=== PATIENT | female | born 1955 | race Caucasian/White ===

== ENCOUNTER → 2016-10-09 | Outpatient (CLI) | payer OTHER ==
[~2016-10-09] MED LIST: BUPR-75 PO; DOXY-17 PO; FLUO10CA66 PO; GABA300C16 PO
--- NOTE | 2016-10-09 14:10 | RADRPT ---
PROCEDURE: Left knee radiographs. CLINICAL INDICATION: Left knee pain. Postop. TECHNIQUE: Three views. Weight bearing. Frontal, lateral, and patellar view. COMPARISON: 02/21/2016. FINDINGS: There is no fracture or dislocation. The soft tissues are normal. 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 There is no lytic or blastic lesion. There is no joint effusion. IMPRESSION: 1. Satisfactory postoperative appearance of the left knee. RPTAT: QQ .Trell Henderson MD, Date Time Electronically viewed and signed by .Trell Henderson MD, on 10/09/2016 14:10 .R/
== END | disposition home or self-care (01) ==
LOC: HKI 09:17
PROVIDERS: ATTEND Orthopaedic Surgery
DX: T84.84XA Pain due to internal orthopedic prosthetic devices, implants and grafts, initial encounter (principal); Z96.652 Presence of left artificial knee joint; Y83.8 Other surgical procedures as the cause of abnormal reaction of the patient, or of later complication, without mention of misadventure at the time of the procedure; M25.562 Pain in left knee
CPT/HCPCS: 73562; Z7500; G0463

== ENCOUNTER → 2016-11-13 | Outpatient (CLI) | payer OTHER ==
--- NOTE | 2016-11-13 14:05 | RADRPT ---
PROCEDURE: Three-phase bone scan study CLINICAL INDICATION: 61 -year-old patient with left knee replacement, complaining of left knee lyn n. TECHNIQUE: Following the intravenous injection of 24.2 mCi of Tc-99m MDP, a three-phase bone scan study of the knees bilaterally was obtained. COMPARISON: No prior bone scan studies. X-ray of the left knee dated October 09, 2016. FINDINGS: Blood flow phase of the study demonstrates symmetrical distribution of activity in the knees bilater ally. Blood pooling images reveal symmetrical distribution of uptake in both knees. Delayed images of both knees demonstrate evidence of a left knee replacement with mildly increased a ctivity surrounding the prosthesis, most prominent in the left patella region, which is likely relat ed to prior surgery. Moderately increased activity is seen in the right knee, which favors degenerative disease. IMPRESSION: 1. Evidence of the left knee replacement with mildly increased activity noted surrounding the prost hesis, likely represents postsurgical changes; prosthesis loosening cannot be entirely ruled out. 2. Likely degenerative changes of the right knee. 3. No other abnormal areas of increased uptake in the obtained limited views of both knees. RPTAT: HH .Missy Morris MD, Date Time Electronically viewed and signed by .Missy Morris MD, on 11/13/2016 14:05 .L/
== END | disposition home or self-care (01) ==
LOC: NUC 08:38
PROVIDERS: ATTEND Orthopaedic Surgery
DX: T84.84XA Pain due to internal orthopedic prosthetic devices, implants and grafts, initial encounter (principal); M25.562 Pain in left knee
CPT/HCPCS: 78315; A9503

== ENCOUNTER 2017-05-27 13:48 | Day surgery (SDC) | END 2017-05-27 21:40 | disposition home or self-care (01) ==

== ENCOUNTER 2018-11-29 17:58 | Emergency (ER) | payer OTHER ==
[~2018-11-29] VITALS: Ht 172.7 cm; Wt 106.8 kg
[~2018-11-29 17:58] MED LIST changes: -DOXY-17 PO; +FLUO10CA26 PO; -FLUO10CA66 PO; +GABA100C14 PO; -GABA300C16 PO
[2018-11-29 18:00] VITALS: Ht 172.7 cm; Wt 106.8 kg
[2018-11-29] MEDS ORDERED: SOD CHLORIDE 0.9% 1,000 ML IV STA (19:40)
--- NOTE | 2018-11-29 19:54 | ERD ---
ER Documentation Chief Complaint Chief Complaint dizziness/near-syncope today while walking w/ CALDERA and nausea. no KO HPI This is a 63-year-old woman brought in by daughter for complaints of dizziness and syncopal episode while walking. She does not recall the entire episode when she woke up she felt normal and was able to ambulate without difficulty. Patient denies head or neck injury, no chest pain or shortness of breath, no dy suria or hematuria, no recent fevers or chills. ROS All systems reviewed and are negative except as per history of present illness. Medications Home Meds Active Scripts Cephalexin* (Keflex*) 500 Mg Capsule, 500 MG PO QID for 5 Days, CAP Prov:PIERRE SCHMITT MD 11/29/18 Reported Medications Gabapentin* (Gabapentin*) 100 Mg Capsule, 500 MG PO QHS, #180 CAP 05/27/17 Bupropion Hcl* (Wellbutrin XL*) 150 Mg Tab.sr.24h, 150 MG PO QAM, TAB.SA 03/12/16 Fluoxetine Hcl* (Prozac*) 10 Mg Capsule, 40 MG PO QAM, CAP 03/14/15 Allergies Allergies: Coded Allergies: adhesive (Unverified Allergy, Unknown, RASH IF LEFT ON TOO LONG, 05/27/17) cortisone (Verified Allergy, Unknown, 05/27/17) methocarbamol (Unverified Allergy, Unknown, DISORIENTED WHEN TAKEN TOGETHER WT CORTISONE, 05/27/17) tramadol (Unverified Allergy, Unknown, rash, 05/27/17) PMhx/Soc Osteoarthritis, orthopedic surgeries History of Surgery: Yes Anesthesia Reaction: No Hx Neurological Disorder: No Hx Respiratory Disorders: No Hx Cardiac Disorders: No Hx Psychiatric Problems: No Hx Miscellaneous Medical Probl: No Hx Alcohol Use: No Hx Substance Use: No Hx Tobacco Use: No FmHx Family History: No diabetes Physical Exam Vitals Vital Signs Date Temp Pulse Resp B/P (MAP) Pulse Ox O2 O2 Flow FiO2 Time Delivery Rate 11/29/18 98.0 76 17 115/59 97 Room Air 21:52 (77) 11/29/18 97.4 93 16 156/84 96 18:00 (108) Physical Exam GENERAL: Well-developed, well-nourished, well-hydrated, in no apparent distress, looks nontoxic in appearance HEENT: Moist mucous membranes, pink conjunctiva, no cervical spine tenderness or step-off deformities, no goiter, no jaundice or icterus, extraocular movements intact without pain. No submandibular induration, and no pharyngeal erythema NEURO: Alert and oriented 3, cranial nerves II through XII intact bilaterally, pupils equal round reactive to light, no focal deficits or facial asymmetry, sensation intact distally Strength 5/5 in upper and lower extremities bilaterally CARDIAC: Regular rate and rhythm, no murmurs rubs or gallops LUNGS: Clear bilaterally no wheezing crackles or stridor ABDOMEN: Soft nontender, no guarding, no rigidity, no rebound, no psoas sign no obturator sign. Normoactive bowel sounds SKIN: Warm and dry to touch, no abrasions, contusions, or hematomas, no lacerations, no ecchymosis, no target lesions, and without ulcers EXTREMITIES: No clubbing cyanosis or edema, calves are bilaterally symmetrical, no Homans sign, no popliteal cord sign. Distal pulses equal and bilateral PSYCH: Normal affect without agitation or irritability Result Diagram: 11/29/18200311/29/182003 Results 24 hrs Laboratory Tests Test 11/29/18 20:04 White Blood Count 9.2 10^3/ul Red Blood Count 5.06 10^6/ul Hemoglobin 13.7 g/dl Hematocrit 42.9 % Mean Corpuscular Volume 84.8 fl Mean Corpuscular Hemoglobin 27.1 pg Mean Corpuscular Hemoglobin Concent 31.9 g/dl Red Cell Distribution Width 13.6 % Platelet Count 319 10^3/UL Mean Platelet Volume 7.9 fl Immature Granulocytes % 0.200 % Neutrophils % 68.1 % Lymphocytes % 21.4 % Monocytes % 6.4 % Eosinophils % 2.9 % Basophils % 1.0 % Nucleated Red Blood Cells % 0.0 /100WBC Immature Granulocytes # 0.020 10^3/ul Neutrophils # 6.3 10^3/ul Lymphocytes # 2.0 10^3/ul Monocytes # 0.6 10^3/ul Eosinophils # 0.3 10^3/ul Basophils # 0.1 10^3/ul Nucleated Red Blood Cells # 0.0 10^3/ul Urine Color STRAW Urine Clarity CLEAR Urine pH 7.0 Urine Specific Roundup 1.006 Urine Ketones NEGATIVE mg/dL Urine Nitrite NEGATIVE mg/dL Urine Bilirubin NEGATIVE mg/dL Urine Urobilinogen NEGATIVE mg/dL Urine Leukocyte Esterase TRACE Ty/ul Urine Microscopic RBC 0 /HPF Urine Microscopic WBC 5 /HPF Urine Hemoglobin NEGATIVE mg/dL Urine Glucose NEGATIVE mg/dL Urine Total Protein NEGATIVE mg/dl Sodium Level 140 mmol/L Potassium Level 4.1 mmol/L Chloride Level 105 mmol/L Carbon Dioxide Level 28 mmol/L Anion Gap 7 Blood Urea Nitrogen 11 mg/dl Creatinine 0.84 mg/dl Est Glomerular Filtrat Rate mL/min > 60 mL/min Glucose Level 122 mg/dl Calcium Level 9.0 mg/dl Total Bilirubin 0.3 mg/dl Direct Bilirubin 0.00 mg/dl Indirect Bilirubin 0.3 mg/dl Aspartate Amino Transf (AST/SGOT) 17 IU/L Alanine Aminotransferase (ALT/SGPT) 16 IU/L Alkaline Phosphatase 92 IU/L Troponin I < 0.012 ng/ml Total Protein 7.4 g/dl Albumin 3.8 g/dl Globulin 3.60 g/dl Albumin/Globulin Ratio 1.05 Lipase 77 U/L Current Medications Medications Dose Sig/Clover Start Time Status Last (Trade) Ordered Route PRN Stop Time Admin Dose Reason Admin Sodium 1,000 ml @ Q1H STAT 11/29/18 DC 11/29/18 Chloride 1,000 mls/hr IV 19:40 11/29/18 20:21 20:39 Procedures/MDM IV line was established 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 Patient was afebrile EKG performed, read by me revealed a normal sinus rhythm at 76 bpm, normal axis, narrow QRS complex, no concerning ST elevations or depressions noted. Chest X-ray 1V Interpreted by me: Soft Tissue: No acute abnormalities Bones: No acute abnormalities Mediastinum/Cardiac Silhouette/Lungs: No acute abnormalities CT scan of the brain was negative for acute bleed mass or shift. I administered 1 L normal saline IV CBC and electrolytes are normal, liver function tests were normal, troponin was negative, urinalysis was equivocal although given her syncopal episode I will be treating her with antibiotics. My recommendation was for inpatient management and admission for further work-up although the patient refused admission and stated she would follow-up with her PMD. I did inform her and her daughter who was at the bedside that leaving AGAINST MEDICAL ADVICE will cause a delay in diagnosis, could result in further dizziness, syncope, collapse, sepsis, and even cardiac arrest. Despite my recommendations and precautions patient still decided to leave AGAINST MEDICAL ADVICE. Departure Diagnosis: Primary Impression: Dizziness Additional Impressions: Syncope Syncope type: unspecified Qualified Codes: R55 - Syncope and collapse Acute UTI Condition: Stable PIERRE SCHMITT MD Nov 29, 2018 19:54
[2018-11-29] MEDS ORDERED: CEPH-443 PO (21:08)
[2018-11-29 21:52] VITALS: BP 115/59; PULSE 76; RESP 17
== END 2018-11-29 21:56 | disposition left against medical advice (07) ==
LOC: E/R 17:58
DX: N39.0 Urinary tract infection, site not specified (principal); R42 Dizziness and giddiness
CPT/HCPCS: 36415; 70450; 71045; 80053; 81001; 83690; 84484; 85025; 93005; 96360; J7030; Z7502

== ENCOUNTER 2019-01-11 13:34 | Day surgery (SDC) | payer OTHER ==
[2019-01-04 10:31] VITALS: BMI 36.6
[~2019-01-11] VITALS: Ht 172.7 cm; Wt 107.6 kg
[2019-01-11] VITALS (18 sets, daily range): BP systolic 110–143; BP diastolic 51–77; PULSE 96–116; RESP 11–26; Ht 172.7 cm; Wt 107.6 kg
[~2019-01-11 13:34] MED LIST changes: +BUPR-165 PO; +FLUO40CA PO; +GABA-526 PO
[2019-01-11] MEDS ORDERED: SEVOFLURANE 15 MIN ONE (16:17)
[2019-01-11] MEDS ORDERED: LIDOCAINE 1% (MPF) 30 ML INJ ONE (16:17)
[2019-01-11] MEDS ORDERED: POLYMYXIN/BACITRACIN 1L IRRIG ONE (16:17)
[2019-01-11] MEDS ORDERED: CEFAZOLIN 1 GM INJ ONE (16:17)
[2019-01-11] MEDS ORDERED: BUPIVACAINE 0.5% (SDV) 30 ML INJ ONE (16:17)
[2019-01-11] MEDS ORDERED: PROPOFOL 20 ML ONE (16:33)
[2019-01-11] MEDS ORDERED: FENTAnyl 50 MCG/ML VIAL ONE (16:33)
[2019-01-11] MEDS ORDERED: HYDROmorphONE 2 MG/ML SYG ONE (16:33)
[2019-01-11] MEDS ORDERED: ONDANSETRON 4 MG INJ ONE ×2 (17:19→18:58)
[2019-01-11] MEDS ORDERED: DEXAMETHASONE 4 MG/ML 5 ML INJ ONE (17:19)
[2019-01-11] MEDS ORDERED: HYDROmorphONE 1 MG/5 ML IV SYRINGE IV ONE (18:35)
[2019-01-11] MEDS ORDERED: HYDROmorphONE 1 MG/5 ML IV SYRINGE IV PRN ×2 (19:30)
[2019-01-11] MEDS ORDERED: METOCLOPRAMIDE 10 MG INJ IV PRN (19:30)
[2019-01-11] MEDS ORDERED: TRIMETHOBENZAMIDE 100 MG/ML VIAL IM PRN (19:30)
[2019-01-11] MEDS ORDERED: ONDANSETRON 4 MG INJ IV PRN (19:30)
[2019-01-11] MEDS ORDERED: FENTAnyl 50 MCG/ML VIAL IV PRN ×2 (19:30)
[2019-01-11] MEDS ORDERED: HYDROmorphONE 0.5 MG/0.5 ML SYG IV PRN ×2 (20:00)
== END 2019-01-11 21:08 | disposition home or self-care (01) ==
LOC: SDS 13:34
PROVIDERS: ATTEND Orthopaedic Surgery Hand Surgery
DX: S63.8X1D Sprain of other part of right wrist and hand, subsequent encounter (principal); X58.XXXD Exposure to other specified factors, subsequent encounter; M25.331 Other instability, right wrist; G56.01 Carpal tunnel syndrome, right upper limb
CPT/HCPCS: C1713; J0690; J1100; J1170; J2405; J3010